=== PATIENT | female | born 1985 | race Caucasian/White ===

== ENCOUNTER → 2017-12-27 | Outpatient (CLI) | payer OTHER ==
[~2017-12-27] MED LIST: IOPAMIDOL (ISOVUE 370) 100 ML BTL IV ONE
== END ==
LOC: CIMAGING 14:20
PROVIDERS: ATTEND Physician Assistant Medical
DX: R07.89 Other chest pain (principal); R06.02 Shortness of breath; K51.918 Ulcerative colitis, unspecified with other complication
CPT/HCPCS: 71275-PO; Q9967

== ENCOUNTER 2018-04-10 17:04 | Emergency (ER) | payer OTHER ==
[2018-04-10] MEDS ORDERED: CEPHALEXIN 500 MG CAP PO ONE (18:53)
[2018-04-10] MEDS ORDERED: SULFAMETHOX/TMP 800/160 MG 1 TAB PO ONE (18:53)
--- NOTE | 2018-04-10 19:00 | EDPHY ---
H & P Time Seen by Provider: 04/10/18 18:09 HPI/ROS: HPI Right ankle pain. 32-year-old female by private vehicle with her boyfriend. This patient is from [place]. She recently moved here. She does not have a primary care physician currently. She reports that she has had a vague swelling to the medial aspect of her right ankle ongoing for 2-3 weeks. There is no history of trauma. She does have a history of ulcerative colitis but is not on immune suppressant medications. She is not a diabetic. She reports that since yesterday she has had significantly more pain to this area associated with redness. She also reports to very slight degree she has noticed a similar sensation involving the medial aspect of her left ankle. ROS: Constitutional: No fever, no chills. No weakness. Respiratory: No cough. No shortness of breath. Cardiac: No chest pain, no palpitations. Gastrointestinal: No abdominal pain, no vomiting, no diarrhea. Genitourinary: No hematuria. No dysuria or increased frequency with urination. Musculoskeletal: No back pain. No neck pain. As above. Skin: No rashes. As above. Neurological: No headache. No focal weakness or altered sensation. Past medical history: Ulcerative colitis. No other past medical history. Social history: Nonsmoker. Here with her boyfriend. No alcohol. Physical Exam: General Appearance: Alert, no distress. This patient is responding to questions appropriately and in full sentences. This patient appears well- hydrated and well-nourished. Eyes: Pupils equal and round no pallor or injection. No lid edema, erythema or injection. Right ankle exam: She has a diffuse erythema with the erythematous patch about the size of the palm of her hand. Estimated less than 1% total body surface area. It involves the inferior aspect of the medial malleolus and the area of the ankle just inferior to this. There is a slight palpable fluctuance just underneath the skin. No ecchymosis. No crepitus noted on palpation. The right foot and lower extremity are neurovascularly intact. The lateral aspect of the ankle joint on palpation of the lateral malleolus does not induce any pain. She does not have any pain with passive and active flexion and extension of the right ankle. Left ankle exam: I could not appreciate any significant swelling, tenderness or fluctuance to the medial aspect of the ankle, the lateral aspect of the ankle or the foot. Left foot is neurovascularly intact. Neurological: Motor sensory function is grossly intact. Cranial nerves are normal. Skin: Warm and dry, no rashes. Musculoskeletal: Neck is supple and nontender. Extremities are symmetrical. All joints range without pain or impingement. Psychiatric: No agitation. No depression. Database: EKG: Imaging: Procedures: Procedure: Abscess drainage. The patient's abscess was located on the medial aspect of the right ankle. I obtained verbal consent from the patient to drain the abscess who was informed about the possibility of bleeding and pain. The abscess was incised with 11. Blade scalp and a moderate amount of purulent drainage was expressed. I irrigated the wound and placed some packing. The patient tolerated the procedure well. The procedure was performed by myself. Emergency department course: Triage vital signs reviewed. She is mildly tachycardic in triage. She was not tachycardic on my exam. She is afebrile. After above procedure, the wound area was appropriately dressed. She will be started on Bactrim and Keflex in the emergency department. She currently does not have a primary care physician. I will have her follow up with the [facility] for re-evaluation and further management in 2 days. Purulent drainage sent for culture and Gram stain. She feels comfortable going home with her boyfriend. Follow-up and return to emergency department precautions were reviewed with her. All of her questions were answered. She was discharged in good condition with her boyfriend. Differential Diagnosis: The differential diagnosis on this patient includes but is not limited to abscess to right medial ankle, cellulitis to right medial ankle. Necrotizing fasciitis, septic arthritis unlikely. This represents a partial list of diagnoses considered. These considerations are based on history, physical exam , past history, reassessment and diagnostic testing. Smoking Status: Never smoked Constitutional: Initial Vital Signs Temperature (C) 36.7 C 04/10/18 17:10 Heart Rate 119 H 04/10/18 17:10 Respiratory Rate 18 04/10/18 17:10 Blood Pressure 117/76 04/10/18 17:10 O2 Sat (%) 98 04/10/18 17:10 O2 Delivery Mode Room Air Allergies/Adverse Reactions: No Known Allergies Allergy (Unverified 04/10/18 17:09) Home Medications: Medication Instructions Recorded Blisovi Fe 1-20 Tablet 04/10/18 Cephalexin [Keflex (*)] 500 mg PO Q6 7 Days cap 04/10/18 Lialda 04/10/18 Sulfamethox/Tmp 800/160 mg 1 tab PO BID@1000,2200 #14 tab 04/10/18 [Bactrim Ds] Tramadol HCl 50 mg PO Q4-6PRN PRN #10 tablet 04/10/18 Uceris 04/10/18 Departure - Departure Disposition: Home, Routine, Self-Care Clinical Impression: Right ankle abscess, Cellulitis of right ankle Condition: Good Instructions: Abscess (ED), Cellulitis (ED) Additional Instructions: Read and follow provided instructions. Follow-up with the [facility], infectious disease specialist, Dr. Noah Verde or 1 of his partners in 1-2 days for re-evaluation as discussed. They will have the results from your cultures as discussed. Take antibiotics as prescribed through entire course of treatment. Take pain medication as needed for pain. Keep wound area dry and clean. The bandage can be kept in place for 2 days until follow-up with [facility]. Return to the emergency department for worsening pain, swelling, fever, discoloration or other serious concerns. Referrals: [facility] (ED,. [Edm Groups for Call Sched] - As per Instructions Noah Verde MD [Medical Doctor] - As per Instructions Prescriptions: Cephalexin [Keflex (*)] 500 mg PO Q6 7 Days cap Sulfamethox/Tmp 800/160 mg [Bactrim Ds] 1 tab PO BID@1000,2200 #14 tab Tramadol HCl 50 mg PO Q4-6PRN PRN #10 tablet PRN Reason: Pain, Moderate
[2018-04-10 19:12] VITALS: BP 118/89
== END 2018-04-10 19:41 | disposition home or self-care (01) ==
LOC: MERGE 17:04
PROC: 0H9KXZZ Drainage of Right Lower Leg Skin, External Approach (ICD-10-PCS; principal; 2018-04-10)
DX: L02.415 Cutaneous abscess of right lower limb (principal); L03.115 Cellulitis of right lower limb
CPT/HCPCS: L4386

== ENCOUNTER 2018-04-16 11:05 | Inpatient (IN) | payer OTHER ==
[2018-04-16 12:01] LABS: PLATELET COUNT 976 10^3/uL (150-400)
[2018-04-16] MEDS ORDERED: HYDROmorphONE/DILAUDID 1 MG/ML INJ IVP PRN (12:20)
[2018-04-16] MEDS ORDERED: HYDROmorphONE/DILAUDID 2 MG/ML INJ ONE (12:35)
--- NOTE | 2018-04-16 13:06 | GCON ---
INFECTIOUS DISEASE CONSULTATION DATE OF CONSULTATION: 04/16/2018 REFERRING PHYSICIAN: Madan Cifuentes MD REASON FOR CONSULT: To assist in the management of this 32-year-old female with bilateral ankle swelling with overlying erythema of unclear etiology. HISTORY OF PRESENT ILLNESS: The patient is a very pleasant 32-year-old female whose previous medical history is notable for the followin.Ulcerative colitis: The patient states this was diagnosed in [place], [place] , where she is from approximately 3 years ago. It was diagnosed by colonoscopy and biopsy. She has been on mesalamine for the past 3 years. Her most recent flare was in October of this year, and she saw Dr. Josemanuel Dallas at [facility] for that. She was given a very slow prednisone taper with 60 mg over 2 months, but states that she did not tolerate the prednisone, and she was abruptly discontinued on 20 mg. She states that she went through "withdrawals, " but refused to go back on prednisone for a slower taper given her intolerance. Of note, she has never had any extraintestinal manifestations of inflammatory bowel disease. Presently, the patient states that her ulcerative colitis symptoms are quiescent and stable on mesalamine. Otherwise, she is a healthy young woman and received all of her childhood vaccinations. Regarding her present issues, the patient states that she has now been in [place] for the past, slightly over a year. She moved from [place], [place]. She reports that she is an avid runner, and approximately 3 weeks ago went on a long run of 15 miles. She states that this is not unusual for her. Shortly after this run, she noticed some discomfort and swelling in her right ankle. She iced it down, but it continued to get worse, and she noticed some overlying erythema and skin discoloration. She presented to [facility] Emergency Department on April 10. At that time, she states she also noted that her left ankle was starting to swell, but much less so compared to the right. She was found to have diffuse erythema with an erythematous patch about the size of the palm of the hand involving the inferior part of the medial malleolus. There was slight fluctuance noted by the ER physician. No crepitus or ecchymoses. The lateral aspect of the ankle was not discolored. The patient had the abscess in her ankle incised with a "moderate amount of purulent drainage expressed." The wound was irrigated and packing was placed. The patient tolerated the procedure well. She was discharged on Bactrim and Keflex and, given the fact that she did not have a primary care doctor, was referred to our clinic for further evaluation. Of note, at that time the patient was afebrile. She was given prescriptions for Keflex 500 mg q.6 hours for 7 days and Bactrim 1 tab p.o. b.i.d. for a week as well. Of note, the patient had not taken any antecedent antibiotics, and interestingly, the ankle Gram stain showed 2+ PMNs, 1+ monos, and no organisms, and the wound culture showed no growth. The patient states that she started taking these oral antibiotics and then, was seen in our clinic this past week, when she was evaluated by my colleagues, Puja Means and Dr. Wheeler. At that time as well, the patient was found to have some discoloration along her left ankle as well. She was started on daptomycin, which she has been receiving in our infusion center. I was called yesterday afternoon by the nursing staff of the Infusion Center, concerned about the appearance of the patient's left ankle with overlying erythema in spite of daptomycin. The patient had no fever and was otherwise well. The patient did not want to go back down to the emergency room, and at that point, I was not in the hospital. Given her clinical stability, I recommended that they move her infusion to the morning; so, I would be able to evaluate her. I then went to go see the patient in the Infusion Center this morning, around 10: 30 when she presented for her daptomycin. The patient states that she is having significant discomfort in both ankles, and now the left ankle is significantly swollen with overlying erythema. The right ankle is unchanged, and the patient feels that antibiotics have made no difference in its appearance. She states that she has had no fevers, shaking chills, nausea, vomiting, diarrhea, or other. She denies any recent gynecological manipulations , dental extraction, or other surgeries at all. She did travel back to [place], [place] over Labor Day weekend, but denies any tick bites, insect bites, or other unusual exposures. She has a very supportive boyfriend who is at her side. They have been together for the past year and both of them report that they are monogamous. She has never had a sexually transmitted infection. She has never been tested for HIV. She states that she has never had any extraintestinal manifestations of ulcerative colitis specifically, no history of joint pains at all. No other unusual exposures. REVIEW OF SYSTEMS: Notable for severe pain in both ankles, but is otherwise negative. Ten systems are reviewed, and all are negative. PREVIOUS MEDICAL HISTORY: Outlined above. ALLERGIES: No known drug allergies. MEDICATIONS: Presently include: Mesalamine and Tylenol p.r.n. Oral contraceptives. SOCIAL HISTORY: The patient was born in [place] and raised in [place], [place]. She moved to [place] slightly over a year ago, and [facility] [place] [facility] with a healthy roommate. She is an avid runner. She has no pets. She has been with the same partner for the past year. She has never been tested for HIV as outlined above, and has never had a sexually transmitted infection to her knowledge. Last Pap smear was in October. She has never had an abnormal Pap smear. She has never been . Rare alcohol, no tobacco, no illicit substances. She works as a airframe technician. No recent tick bites, insect bites, or other. FAMILY HISTORY: The patient has 2 healthy siblings. Mother and father are also healthy. No autoimmune history. PHYSICAL EXAMINATION: VITAL SIGNS: T-current is 35.9, heart rate 106, blood pressure 112/71, 100% on room air. GENERAL: Thin female, nontoxic, no apparent distress. HEENT: Atraumatic, normocephalic. Pupils equal, round, reactive to light. Extraocular movements are intact. Her left conjunctiva is notable for some mild conjunctival erythema on the lateral aspect of her left eye. Does not appear to be a hemorrhage. Otherwise, the orbits are normal. Pupils are equal, round, and reactive to light. No scleral icterus. No known sinus process, tenderness, or discharge from the nares. Mucous membranes are moist. No oral lesions noted, whatsoever. CARDIOVASCULAR: Tachycardic S1, S2. No rubs, gallops, or murmurs. LUNGS: No increased respiratory effort. Clear to auscultation bilaterally. No rales, rhonchi, or wheeze. ABDOMEN: Soft. No organomegaly. No tenderness to palpation. SKIN: Warm and dry, no embolic stigmata. Please see below regarding her ankle exam. EXTREMITIES: There is no discomfort with squeeze of the small joints of her fingers, toes, hands, or feet. The elbows and other large joints look fine. The right ankle is quite swollen and warm. There is overlying dusky erythema circumferentially over the lateral and medial aspects of both malleoli. There is a large hemorrhagic bulla that is now flaccid and burst during my exam with a large amount of bloody drainage. There is no hip esthesia or lack of sensation. The patient has extreme pain when flexing or extending her foot. The toes themselves look fine. The left ankle is also swollen, less so compared to the right. She does have an overlying patch of erythema that is blanching. There are no bullae or vesicles. The medial malleolar patch of erythema has underlying fluctuance to it and is quite tender. NEUROLOGIC: She is alert and oriented x3. No focal deficits. DATA REVIEWED: Laboratory: Microbiologic data as outlined above. White blood cell count on the 13 of April was 11.8, hematocrit 26, with an MCV of 74, platelet count of 806. BUN and creatinine on the , was 8/0.7. Liver function tests were within normal limits, but albumin was notable at 2.8, creatine kinase was 28. Radiographic: None. IMPRESSION: 32-year-old female with a history of ulcerative colitis, presently quiescent with no history of extraintestinal manifestations, now with bilateral ankle swelling and overlying erythema/fluctuance unaffected by Daptomycin. Previous aspiration of the right ankle off antibiotics was sterile with a negative Gram stain. The patient now has progression of her symptoms, with worsening swelling and new overlying erythema and fluctuance of the left ankle. No other joints are involved. She perhaps has a mild conjunctivitis in the left eye that is subtle. No urinary symptoms. The patient's exposure history is underwhelming; she does not use illicit substances and no recent arthropod bites. The differential diagnosis for progressive bilateral arthritis with overlying skin changes includes both infectious and non-infectious etiologies. This process is clearly unaffected by daptomycin, and typical pathogens to be expected such as Staphylococcus and Streptococcus did not grow in the patient's original culture. She is a young, sexually active woman, so disseminated gonococcal infection should be ruled out, although this seems less likely given the patient's history. Other infectious etiologies that would be difficult to culture include anaerobes (unlikely), Borrelia Burgdorferi,(unlikely as well, and this typically presents as a monoarticular process affecting the knee.) Doubt Whipple's disease, mycoplasma (can be seen in females or patients with hypogammaglobulinemia), fungal etiologies or atypical mycobacteria. Clinical presentation is also inconsistent with a viral etiology , such as rubella, parvovirus, or the hepatitis viruses. Regarding noninfectious etiologies, considerations include crystalline arthropathies such as gout or pseudogout or mesalamine induced gout (less than 1 %), arthritis related to ulcerative colitis, reactive arthritis, or other autoimmune phenomenon. PLAN: 1. Discontinue Daptomycin. 2. Start Ceftriaxone 2 g IV daily after the left ankle has been aspirated to cover disseminated gonococcal infection until this has been ruled out. 3. Obtain MRIs of both ankles. 4. I have asked Dr. Damian Moreno of Orthopedics to see the patient and aspirate her left ankle and send for Gram stain, culture, AFB stain and culture , fungal stain and culture, crystals to look for uric acid or calcium para phosphate, cell count, and differential, and gonococcal culture. 5. Will also obtain blood cultures given that the ankle process is bilateral ( intimating blood stream infection), HIV antibody test, gonorrhea and chlamydia screening of the throat and urine, ILENE, ESR, CRP, rheumatoid factor, HLA B27. Will also ask the micro lab to hold the sample in case of the need for PCR testing for other unusual organisms, such as mycoplasma. 6. For her anemia, I have sent iron studies and reticulocyte count; suspect this is the cause of her tachycardia. I do not feel that she needs an echocardiogram at this point in time, as concern for endocarditis is low. 7. Given lack of evidence of streptococcal or staphylococcal etiology, do not feel the patient requires an emergent washout at this point in time of her joints. If this were disseminated gonococcus, washouts are typically not necessary. 8. Consider Rheumatology consult moving forward if necessary. 9. As she is a sexually active young female with no prior testing, will also screen for syphilis in addition to gonorrhea and chlamydia screening of the throat and urine, hepatitis-C antibody, and HIV as outlined above. Thank you very much for consulting Infectious Diseases. We will continue to follow this patient you. /[id number]/MODL MTDD
[2018-04-16] MEDS ORDERED: GADOBUTROL 10 ML VIAL IVP ONE (13:31)
[2018-04-16] MEDS ORDERED: ACETAMINOPHEN 325 MG TAB PO PRN (13:37)
[2018-04-16] MEDS ORDERED: ONDANSETRON 4 MG/2 ML VIAL IVP PRN (13:37)
[2018-04-16] MEDS ORDERED: ONDANSETRON DISINTEGRATING 4 MG TAB PO PRN (13:37)
[2018-04-16] MEDS ORDERED: NS W/ 20 KCl/L 1,000 ML IV SCH (13:45)
--- NOTE | 2018-04-16 13:54 | PDGENHP ---
History and Physical - Chief Complaint bilateral ankle swelling - History of Present Illness This is a 32 yo female, with hx of UC, who went on a run a few weeks ago and developed right ankle pain and swelling. This progressed and ultimately she presented to our ED for management. The swelling was aspirated and cultures were negative. She was started on Bactrim and Keflex and she f/u with Dr. Wheeler with ID. On follow up her abx was changed to Daptomycin. Over the past few days she has noted to have swelling of her left ankle with similar appearance to that of the right. She was at the infusion center yesterday and was asked to return today. Upon her return to day, ID evaluated and it was felt that she needed admission for further w/u and mgmt. She denies fever. She has a cough which started about 2 days ago but otherwise has been feeling fine. Denies rhinorrhea or cold like symptoms, no diarrhea, no rash. She is sexually active with her BF. she does not have any recent travel. Ortho has been consulted. PMHx: UC per above socHx: non smoker, social ETOH, no illicits FmHx: no hx of AI disorder History Information - Allergies/Home Medication List Allergies/Adverse Reactions: No Known Allergies Allergy (Verified 04/16/18 11:36) Home Medications: Mesalamine [Lialda] 4.8 gm PO DAILY 04/10/18 [Last Taken 04/16/18 11:00] Norethindrone-E.estradiol-Iron [Blisovi Fe 1-20 Tablet] 1 each PO DAILY [Last Taken 04/15/18] I have personally reviewed and updated: medical history, social history - Social History Smoking Status: Never smoked Review of Systems Review of Systems: ROS: 10pt was reviewed & negative except for what was stated in HPI & below Physical Exam Physical Exam: Temp Pulse Resp BP Pulse Ox 36.7 C 90 16 117/77 99 04/16/18 12:00 04/16/18 12:00 04/16/18 12:00 04/16/18 12:00 04/16/18 12:00 Constitutional: no apparent distress Eyes: PERRL, EOMI Ears, Nose, Mouth, Throat: moist mucous membranes, hearing normal, ears appear normal Cardiovascular: regular rate and rhythym, No edema Respiratory: no respiratory distress, no rales or rhonchi, clear to auscultation Gastrointestinal: normoactive bowel sounds Skin: warm Musculoskeletal: other (bilateral ankles with swelling and erythema mostly on medial aspect. There is induraton over the medial malleolus. ) Neurologic: AAOx3 Psychiatric: interacting appropriately, not anxious, not encephalopathic Lymph, Heme, Immunologic: No petechiae Lab Data & Imaging Review 04/16/18 11:40 04/16/18 11:40 WBC 13.43 10^3/uL (3.80-9.50) H 04/16/18 11:40 RBC 3.96 10^6/uL (4.18-5.33) L 04/16/18 11:40 Hgb 9.0 g/dL (12.6-16.3) L 04/16/18 11:40 Hct 29.0 % (38.0-47.0) L 04/16/18 11:40 MCV 73.2 fL (81.5-99.8) L 04/16/18 11:40 MCH 22.7 pg (27.9-34.1) L 04/16/18 11:40 MCHC 31.0 g/dL (32.4-36.7) L 04/16/18 11:40 RDW 15.8 % (11.5-15.2) H 04/16/18 11:40 Plt Count 976 10^3/uL (150-400) H 04/16/18 11:40 MPV 8.3 fL (8.7-11.7) L 04/16/18 11:40 Neut % (Auto) 71.6 % (39.3-74.2) 04/16/18 11:40 Lymph % (Auto) 16.0 % (15.0-45.0) 04/16/18 11:40 [place] % (Auto) 8.9 % (4.5-13.0) 04/16/18 11:40 Eos % (Auto) 2.0 % (0.6-7.6) 04/16/18 11:40 Baso % (Auto) 0.2 % (0.3-1.7) L 04/16/18 11:40 Nucleat RBC Rel Count 0.0 % (0.0-0.2) 04/16/18 11:40 Absolute Neuts (auto) 9.62 10^3/uL (1.70-6.50) H 04/16/18 11:40 Absolute Lymphs (auto) 2.15 10^3/uL (1.00-3.00) 04/16/18 11:40 Absolute Monos (auto) 1.19 10^3/uL (0.30-0.80) H 04/16/18 11:40 Absolute Eos (auto) 0.27 10^3/uL (0.03-0.40) 04/16/18 11:40 Absolute Basos (auto) 0.03 10^3/uL (0.02-0.10) 04/16/18 11:40 Absolute Nucleated RBC 0.00 10^3/uL (0-0.01) 04/16/18 11:40 Immature Gran % 1.3 % (0.0-1.1) H 04/16/18 11:40 Immature Gran # 0.17 10^3/uL (0.00-0.10) H 04/16/18 11:40 ESR 101 MM/HR (0-20) H 04/16/18 11:40 Absolute Retic 0.030 10^6/uL (0.050-0.117) L 04/16/18 11:40 Percent Retic 0.71 % (0.98-2.67) L 04/16/18 11:40 Sodium 137 mEq/L (135-145) 04/16/18 11:40 Potassium 4.7 mEq/L (3.3-5.0) 04/16/18 11:40 Chloride 104 mEq/L (97-110) 04/16/18 11:40 Carbon Dioxide 22 mEq/l (22-31) 04/16/18 11:40 Anion Gap 11 mEq/L (8-16) 04/16/18 11:40 BUN 9 mg/dL (7-23) 04/16/18 11:40 Creatinine 0.6 mg/dL (0.6-1.0) 04/16/18 11:40 Estimated GFR > 60 04/16/18 11:40 Glucose 84 mg/dL (70-100) 04/16/18 11:40 Calcium 9.0 mg/dL (8.5-10.4) 04/16/18 11:40 Iron 16.0 mcg/dL (37.0-170.0) L 04/16/18 11:40 TIBC 293 ug/dL (260-490) 04/16/18 11:40 Iron Saturation 5 % (20-55) L 04/16/18 11:40 Ferritin 49.6 ng/mL (6.2-264.0) 04/16/18 11:40 Total Bilirubin 0.3 mg/dL (0.1-1.4) 04/16/18 11:40 AST 36 IU/L (14-46) 04/16/18 11:40 ALT 41 IU/L (9-52) 04/16/18 11:40 Alkaline Phosphatase 115 IU/L (38-126) 04/16/18 11:40 C-Reactive Protein 152.5 mg/L (<10.0) H 04/16/18 11:40 Total Protein 6.7 g/dL (6.3-8.2) 04/16/18 11:40 Albumin 3.1 g/dL (3.5-5.0) L 04/16/18 11:40 Synovial Source SYNOVIAL 04/16/18 12:35 Synovial Color PINK (CLS/PALE YL) H 04/16/18 12:35 Synovial Appearance SL. HAZY (CLEAR) H 04/16/18 12:35 Synovial WBC 114 /mm3 (0-150) 04/16/18 12:35 Synovial RBC 62410 /mm3 (0-0) H 04/16/18 12:35 Synovial Neutrophils 42 % (0-25) H 04/16/18 12:35 Synovial Lymphocytes 41 % 04/16/18 12:35 Synov Monos/Macrophage 17 % 04/16/18 12:35 Rheum Factor Semi-Quant < 8.6 IU/L (<12.0) 04/16/18 11:40 Assessment & Plan Assessment: #Bilateral ankle swelling concerning for infection vs other -Change abx to Rocephin per ID -ID is following -Ortho has aspirated the fluid collections -await cultures -await Rheum and infectious w/u -check drug screen -consider TTE if w/u remains negative #cough: -I will obtain a CXR -not hypoxemic #Leukocytosis #Anemia with Microcytosis -iron panel #Tachycardia, unclear etiology -will provide a liter of IVF -may be due to anemia vs possible infection #ulcerative colitis inpatient admission
--- NOTE | 2018-04-16 14:15 | ASMTCMCOM ---
CM Note CM Note Notes: 32yr old female admitted for bilateral ankle swelling. Had R ankle swelling went to ER[facility] and on ABX. now bilateral swelling. Patient on IV ABX, ankle fluid aspirated and sent for cultures. Patient has a supportive boyfriend.CM to follow for possible discharge needs. Date Signed: 04/16/2018 02:15 PM Electronically Signed By:Staci Beach LCSW
[2018-04-16] MEDS: NORETHINDRONE E ESTRADIOL IRON PO SCH (16:09)
--- NOTE | 2018-04-16 17:09 | PDMN ---
Medical Necessity Medical necessity: Pt meets inpt criteria per MD order and Systemic or Infectious Condition GRG. y/o admitted w/bilateral ankle swelling/pain concerning for infection, leukocytosis (WBC's 13.43), C-Reactive protein elevated at 152.5, H&H 9.0, 29.0, plt elevated at 976, tachycardic, cough present. Pt seen on outpt basis for ankle swelling,on antibiotics yet symptoms progressing. Ortho consult, fluid aspirated, cultures pending, ID consult and following, IVF, IV ABX's, cxr pending, anticipate>2MN for further workup and treatment.
--- NOTE | 2018-04-16 18:28 | GCON ---
REFERRING PHYSICIAN: Molly Donald MD I was asked to see the patient by Molly Donald, the infectious disease specialist at [facility]. HISTORY OF PRESENT ILLNESS: For a more detailed HPI, please see the patient's history and physical w ith her infectious disease doctor. In short, the patient has had bilateral ankle pain for the last s everal weeks. An aspiration was done of the right ankle which did not demonstrate any sort of infect ious process, and labs were grossly negative for infection. Labs were sent at that time. However, t here were inadequate with regard to crystal analysis, cell count, etc. I have been asked by Dr. Kaz freeman to send additional studies to assist with her diagnosis. The patient notes no other issues aside f rom her bilateral ankle pain as mentioned. PHYSICAL EXAM: Both ankles are visualized. The right ankle is somewhat more swollen and tender. Sh e does have skin changes over the medial aspect. There is some induration bilaterally in more or les s symmetric pattern centered over the medial malleolus with approximately 15 cm in diameter. Difficu lt to tell if this is erythema or underlying soft tissue changes. Neurovascularly, she is intact. S he has no sensory, motor, or vascular deficits. An MRI is reviewed. I have personally seen and evaluated this exam. Grossly, there is nothing too r emarkable about this examination. I will at this time defer to radiologist's report regarding the fi nal diagnosis. IMPRESSION: Bilateral ankle swelling with medial ankle lesions. The patient was consented for left ankle aspiration. Under sterile conditions, the left ankle was as pirated. The first cubic centimeters of ankle fluid that was drawn back was perfectly clear. The la st bit of fluid had a little bit of blood tinge in it due to the traumatic nature of the aspiration. Approximately 1.5 cc total joint fluid was then sent for all of the aforementioned studies requested by Dr. Donald. ASSESSMENT AND PLAN: It really does not look like this patient has any sort of infectious etiology a nd I strongly doubt she would need any sort of irrigation, debridement, or further operative manageme nt. Therefore, I will sign off on this patient for now and I have asked that Dr. Donald contact me in the future if any further surgical consultation or management is requested. Thank you again for this consultation. Please do not hesitate to contact my cell phone if there are any further questions or concerns, . /[id number]/MODL
[2018-04-16] MEDS: HYDROCODONE/APAP 5/325 TAB PO PRN (19:38)
[2018-04-17 04:13] LABS: HIV TYPE 1 AND 2 NEGATIVE (NEGATIVE)
[2018-04-17 04:13] LABS: HEPATITIS B CORE AB TOTAL NEGATIVE (NEGATIVE); HEPATITIS B SURFACE ANTIGEN NEGATIVE (NEGATIVE); HEPATITIS C ANTIBODY TOTAL NEGATIVE (NEGATIVE)
[2018-04-17] MEDS: HYDROCODONE/APAP 5/325 TAB PO PRN ×4 (04:23→20:37)
[2018-04-17 05:22] LABS: PLATELET COUNT 785 10^3/uL (150-400)
[2018-04-17] MEDS: MESALAMINE 4.8 GM PO SCH (08:28)
[2018-04-17] MEDS: NORETHINDRONE E ESTRADIOL IRON PO SCH (08:30)
--- NOTE | 2018-04-17 11:40 | HOSPPROG ---
Hospitalist Progress Note Assessment/Plan: #Bilateral ankle swelling concerning for infection vs other -Change abx to Rocephin per ID -ID is following -Ortho has aspirated the fluid collections -await cultures -await Rheum and infectious w/u -consider TTE if w/u remains negative #Leukocytosis #Anemia with Microcytosis -iron panel indicated Fe Deficiency -Will start on PO iron replacement upon discharge with instructions to followup with OP GI #Tachycardia, unclear etiology -will provide a liter of IVF -may be due to anemia vs possible infection #ulcerative colitis Dispo: Pending clinical course Subjective: Patient reports continuing b/l ankle pain and swelling Objective: Vital Signs Temp Pulse Resp BP Pulse Ox 36.9 C 86 16 114/78 94 04/17/18 07:31 04/17/18 07:31 04/17/18 07:31 04/17/18 07:31 04/17/18 07:31 Microbiology 04/16/18 12:48 Gram Stain - Final Synovial Fluid - Aspirate Laboratory Results 04/17/18 04:07 04/17/18 04:07 04/16/18 04/17/18 04/18/18 05:59 05:59 05:59 Intake Total 1000 Balance 1000 - Physical Exam Constitutional: no apparent distress Eyes: PERRL Ears, Nose, Mouth, Throat: moist mucous membranes Cardiovascular: regular rate and rhythym Respiratory: no respiratory distress Gastrointestinal: soft, non-tender abdomen Genitourinary: no bladder fullness Skin: warm, erythema Musculoskeletal: joint effusion, joint tenderness, pain with ROM, abnormal gait Neurologic: AAOx3 Psychiatric: interacting appropriately ICD10 Worksheet Patient Problems: Problems Problem Status Onset Ankle swelling Acute Ulcerative colitis Acute - ICD10 Problem Qualifiers (1) Ankle swelling (2) Ulcerative colitis
[2018-04-17 12:04] LABS: GC AMPLIFICATION GENPROBE NEGATIVE (NEGATIVE)
--- NOTE | 2018-04-17 14:08 | PCMIDPN ---
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 Reviewed with Rheumatology who also note that panniculitis can occur in the setting of ulcerative colitis. They will see the patient in consultation for further assistance and to help determine if additional immunosuppressive therapy warranted. Seropurulent material was expressed today and sent for AFB and fungal culture as well. GC testing is negative, therefore will discontinue ceftriaxone and observe off antibiotic therapy. Patient also has concomitant thrombocytosis and anemia consistent with significant inflammatory response. If rheumatology feel skin biopsy would be of further utility, will arrange for this to take place. Time spent, greater than 35 min, of which greater than half was spent in education/counseling/coordination of care related to bilateral ankle arthropathy with soft tissue inflammatory change including coordination of care with hospitalist service and Rheumatology. 04/17/18 14:03 04/17/18 16:58 04/17/18 17:10 Subjective: Patient with bilateral ankle pain. Right greater than left. Unable to bear weight on right ankle. No sense of fever or chills. Patient did not have any clinical improvement with daptomycin and has not noted any improvement with ceftriaxone. No preceding pedicures or hot tub exposure. No animal exposure. Patient previously seen by me in office at time of her initial evaluation by Puja Means NP on 04/13/18. Dr. Donald's consultation from yesterday also reviewed. Imaging and diagnostic tests including synovial fluid findings and culture findings also reviewed. Objective: Vital Signs Temp Pulse Resp BP Pulse Ox 36.9 C 86 16 114/78 94 04/17/18 07:31 04/17/18 07:31 04/17/18 07:31 04/17/18 07:31 04/17/18 07:31 Microbiology 04/17/18 09:50 Gram Stain - Final Ankle - Aspirate 04/16/18 12:48 Gram Stain - Final Synovial Fluid - Aspirate Laboratory Results 04/17/18 04:07 04/17/18 04:07 04/16/18 04/17/18 04/18/18 05:59 05:59 05:59 Intake Total 1000 Balance 1000 ESR 101 MM/HR (0-20) H 04/16/18 11:40 C-Reactive Protein 152.5 mg/L (<10.0) H 04/16/18 11:40 Ceftriaxone # 2 Blood cultures x2 04/16/2018 pending Multiple rheumatologic serologies pending Laboratory Tests 04/16/18 04/16/18 04/16/18 11:10 11:10 11:25 Synovial WBC Synovial RBC Synovial Neutrophils Synovial Lymphocytes Synov Monos/Macrophage Synovial Crystals Rheum Factor Semi-Quant Syphilis IgG/IgM Ab NONREACTIVE C.trachomatis RNA (TMA) Hep Bs Antigen NEGATIVE Hepatitis C Antibody NEGATIVE Monoscreen NEGATIVE N.gonorrhoeae RNA (TMA) NEGATIVE 04/16/18 04/16/18 04/16/18 11:40 12:35 14:26 Synovial WBC 114 Synovial RBC 23089 H Synovial Neutrophils 42 H Synovial Lymphocytes 41 Synov Monos/Macrophage 17 Synovial Crystals NONE SEEN Rheum Factor Semi-Quant < 8.6 Syphilis IgG/IgM Ab C.trachomatis RNA (TMA) NEGATIVE Hep Bs Antigen Hepatitis C Antibody Monoscreen N.gonorrhoeae RNA (TMA) - Physical Exam General Appearance: alert, no apparent distress EENT: pharynx normal, No scleral icterus, No conjunctival petechiae Extremities: inflammation (Right medial malleolar region with residual dusky erythema and seropurulent drainage; remains significantly tender to palpation with pain with range of motion of ankle; left medial malleolar region with new dusky erythema and "ropy"texture with tenderness present and pain with range of motion of ankle; no drainage present) ICD10 Worksheet Patient Problems: Problems Problem Status Onset Ankle swelling Acute Ulcerative colitis Acute
--- NOTE | 2018-04-17 15:31 | WOCRNPDOC ---
WOCRN Advanced Assessment Note - Skin Integrity Problem, Advanced Assess Right Ankle Dressing Type: Open to Air Exudate Amount: Moderate Exudate Color: Reddish/Yellow Exudate Characteristic(s): Serosanguinous Integumentary Issue Intervention: Visualized Under Dressing (visualized wound) Jerri Wound Tissue: Erythema, Swollen, Painful/Tender Jerri Wound Swelling: Moderate Wound Bed Color: [place], Red, White Wound Bed Constitution: Draining Serous Blister Site Measurement - Head-to-Toe Length X Width X Depth (cm): 7x5x bulla Skin Integrity Problem Comment: Wound bed cleaned gently with normal saline. Patient states wound is very painful. Patient states she doesn't know where the wounds came from. Dr. Wheeler in ID described wound as possibly being PG based on patient presentation. Conferred with Jennifer VARELA who agrees with Dr Wheeler. Wound care will round again later this week.
[2018-04-18] MEDS: HYDROCODONE/APAP 5/325 TAB PO PRN ×2 (02:15→08:06)
[2018-04-18] MEDS: methylPREDNISolone 4 MG TAB PO SCH (08:01)
[2018-04-18] MEDS: MESALAMINE 4.8 GM PO SCH (08:05)
[2018-04-18] MEDS: NORETHINDRONE E ESTRADIOL IRON PO SCH (08:06)
--- NOTE | 2018-04-18 10:39 | PDCONSULT ---
Archaeologist Note: Requesting physician-- Dr. Uvaldo Wheeler Primary GI-- Dr. Josemanuel Dallas Reason for consult-- ankle pain Date of service 04/17/18 HPI-- Ms. Buenrostro is a 32 yo F with UC who presents with B ankle pain. She has UC that was biopsy proven in 2014. She was treated with lialda, mesalamine and uceris and was in remission after this. She did great until October 2017 when she had a flare of UC symptoms. She was started on prednisone 60mg, but had significant side effects including CP, SOB, insomnia and anorexia. She continued her taper over 10 wks though. Since then she has had continued diarrhea and bloody stools, but it's better than it was in October. 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 She somehow made it to ID for ? cellulitis. She was started on oral abx and then a few days of IV abx. After she didn't have improvements she was admitted 04/16/18. About 1 wk prior to admission she had pain and swelling at the L medial ankle. ROS-- 14point ROS negative except for pertinents as below No fever, chills, wt loss, iritis, joint pain, stiffness, back stiffness, enthesitis, dactylitis, rash. PMH-- ulcerative colitis PSH-- none SH-- nonsmoker, social ETOH FH-- no autoimmune disease Allergies-- NKDA PE-- vitals as noted in nursing notes GEN-- aao x 3, no acute distress HEENT-- no submandibular/parotid swelling, no masses Chest-- clear, no wheeze/rhonchi CV-- RRR, no murmur Abd-- nondistend Ext-- soft tissue swelling B ankles and with pitting on L foot Skin-- 6cm erythematous and swollen area at L medial malleolus, no ulceration but nodularities that look like varicosities would appear; RLE with erythematous nodular lesion, dressed MSK-- no synovitis BUE, knees; B ankles difficult to assess given significant STS Labs-- 04/16/18-- WBC 13.4, Hb 9.0, Plt 976, neuts 9.6k, monos 1.2k; R ankle SF WBC 114 , RBC 35,011, neuts 42%, no crystals, gram and AFB stains negative; NEG-- UDS, Chlm/GC RNA, HBsAg, HBcAb, HCV ab, mono, HIV 1/2 04/17/18-- CRP 15.2mg/dl; WBC 11.3, Hb 7.6, MCV 74, Plt 785, neuts 6.95, lymphs 2.7k; Cr 0.6, GFR >60, Ca 8.2, AP 115, AST 36, ALT 41; iron 52, sat 5%, ferritin 50, TIBC 293 pending studies-- ILENE, dsDNA, CCP, ANCA, PR3, MPO, HLA-B27, HBsAb, SF culture, blooc cx 04/16/18 MRI R ankle-- 3cm cutaneous fluid collection med. R ankle, extensive cellulitis w/o abscess or osteomyelitis; no effusion, synovitis or bone marrow edema 04/16/18 MRI L ankle-- extensive subcutaneous cellulitis med-post ankle w/o abscess or osteomyelitis; no effusion or synovitis noted A/P-- 32yo F with hx of UC, anemia and now subcutaneous nodular lesions B medial ankles. 1. Ankle pain and skin lesions-- she has no evidence for synovitis to account for her ankle swelling, which is more soft tissue than articular. She has normal synovial fluid WBC and no synovitis on MRI so that's good news. I suspect this is a dermatologic manifestation of UC. Interestingly, she has a nodular appearance, which I haven't seen before with derm manifestations of IBD. I suspect this is a panniculitis as the lesion doesn't look like classic erythema nodosum, pyoderma gangrenosum or Sweet's syndrome. I don't see evidence for vasculitis. 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 For now she's agreeable to at least trying medrol as an alternative to prednisone (she had terrible side effects). We reviewed the side effects at length and she's ok with trying 40mg qam x 3 days then 32mg qam with plans to taper after this. 2. Ulcerative colitis-- she had a flare in October and continues to have diarrhea. She has an iron deficiency anemia so I suspect she has active colitis. I called Dr. Ky Barrios, salon shampoo assistant for her GI DrMiri Dallas, who will see her tomorrow and likely plan on a colonoscopy. If evidence for active disease she'll probably need a TNF-inhibitor. 3. Anemia-- combo of chronic dz and iron deficiency 4. Thrombocytosis-- likely from systemic inflammatory process, from IBD and/or skin. 5. Will follow peripherally. Call if ?s [phone].
--- NOTE | 2018-04-18 11:37 | HOSPPROG ---
Hospitalist Progress Note Assessment/Plan: #Bilateral ankle swelling concerning for infection vs other -ID consulted who initially changed abx to Rocephin then were discontinued yesterday -Ortho has aspirated the fluid collections, awaiting cultures -Rheumatology consulted yesterday who believe this is 2/2 to UC, started patient on Methylprednisilone 40 mg qd -Autoimmune lab work pending #Anemia with Microcytosis -iron panel indicated Fe Deficiency -Will start on PO iron replacement upon discharge with instructions to followup with OP GI - Continue to monitor CBC - GI to be consulted for evaluation of UC activity #ulcerative colitis - Has been controlled on Mesalamine in the past - Tx with steroids as above, GI to be consulted for evaluation of ds activity Dispo: Pending clinical course Subjective: Patient reports improved swelling and pain in b/l LE Objective: Vital Signs Temp Pulse Resp BP Pulse Ox 36.6 C 91 16 111/64 95 04/18/18 07:55 04/18/18 07:55 04/18/18 07:55 04/18/18 07:55 04/18/18 07:55 Microbiology 04/17/18 09:50 Mycobacterial Smear (SIRIA) - Final Ankle - Other 04/17/18 09:50 Gram Stain - Final Ankle - Aspirate Laboratory Results 04/18/18 04:12 04/18/18 04:12 04/17/18 04/18/18 04/19/18 05:59 05:59 05:59 Intake Total 1000 500 Balance 1000 500 - Physical Exam Constitutional: no apparent distress Eyes: PERRL Ears, Nose, Mouth, Throat: moist mucous membranes Cardiovascular: regular rate and rhythym Respiratory: no respiratory distress Gastrointestinal: normoactive bowel sounds Skin: warm, erythema Musculoskeletal: joint effusion, pain with ROM Neurologic: AAOx3 Psychiatric: interacting appropriately ICD10 Worksheet Patient Problems: Problems Problem Status Onset Ankle swelling Acute Ulcerative colitis Acute - ICD10 Problem Qualifiers (1) Ankle swelling (2) Ulcerative colitis
--- NOTE | 2018-04-18 12:30 | GCON ---
CHIEF COMPLAINT: Ulcerative colitis, admitted with questionable cellulitis. Patient admitted with lower extremity erythema, treated initially for cellulitis. HISTORY OF PRESENT ILLNESS: This 32-year-old woman has a history of ulcerative colitis followed by Dr. Pitts as an outpatient. I have been asked to see this paitent in consultaion by Dr. Godinez due to her history of UC. She was admitted with right ankle swelling. Symptoms of erytema and swelling became worse and she was seen in the emergency department. She was seen by Infectious Disease and Rheumatology. She was diagnosed with UC in 2014. Previous treatment and work up was [place] of [place]. She was recently seen by Dr. Dallas in October for symptoms of bloody diarrhea consistent with colitis and flare. She had not been on medication or specific treatment of UC at that time. She was placed on Lialda and prednisone at that time. She did not tolerate prednisone and was started on Lialda 4 tabs a day and Uceris. She gradually had improvement of symptoms. She has finished her course of Uceris. She reports to be doing fairly well as far as her UC symptoms. She was having some increased crampy discomfort and diarrhea with onset of lower extremity erythema and edema. This symptoms have improved since her admission. I have been asked to see patient during this hospitalization due to her history of ulcerative colitis. The patient was started on Medrol yesterday by Dr. Godinez for panniculitis of the LE. She had not responded to IV antibiotics. PAST MEDICAL HISTORY: Remarkable for ulcerative colitis. PAST SURGICAL HISTORY: Negative. MEDICATIONS: Currently include acetaminophen, Ferriday, Medrol 40 mg daily, Zofran. ALLERGIES: She has no known drug allergies. FAMILY HISTORY: Noncontributory as pertains to chief complaint. SOCIAL HISTORY: Nonsmoker, nondrinker. REVIEW OF SYSTEMS: Negative 10 systems. PHYSICAL EXAM: VITAL SIGNS: 111/64, heart rate of 91, respiratory rate 16, 95 % sat, 36.6. GENERAL: Very pleasant woman, no acute distress. HEENT: Normocephalic, atraumatic. EOMI. NECK: Supple. No cervical adenopathy. LUNGS: Clear. CARDIAC: Normal S1, S2. No cervical adenopathy. Mucous membranes moist. No thyromegaly. Without murmur. ABDOMEN: Soft, normal, benign, nontender. No hepatosplenomegaly. EXTREMITIES: Remarkable for erythema of the right and left lower extremity. No edema. No clubbing. SKIN: Warm, dry, intact otherwise. PSYCH: Normal affect. NEURO: Nonfocal. LABORATORY DATA: Serum sodium 137, potassium 4.9, CO2 of 28, creatinine 0.6. White count of 8.87. Hemoglobin 7.2, hematocrit 23.2, MCV of 74.1. IMPRESSION: 32-year-old woman with history of ulcerative colitis with microcytic anemia. Suspect chronic disease. Patient on Lialda. She may benefit from biologics. However, we will recommend continuing on Lialda at present until over current illness. The patient will follow up and proceed with outpatient colonoscopy and consideration for biologic therapy. Will follow with you while she is in the hospital. /[id number]/MODL MTDD
--- NOTE | 2018-04-18 17:51 | PCMIDPN ---
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 Findings most compatible with immunologic response related to underlying UC. Plans for outpatient colonoscopy to assess for active colitis. Significant clinical improvement since initiating Solu-Medrol. Blood and wound cultures remain negative to date. AFB smear sent yesterday was also negative. Plan continued observation off antibiotics and with ongoing steroid use. Denuded bulla on right medial malleolar region may require ongoing wound care as this likely will leave large area of exposed tissue. Will arrange for [facility] 04/18/18 17:47 Subjective: Patient with significant decrease in left ankle pain and some decrease in right ankle pain but remains unable to bear weight on right ankle. Skin changes on left ankle less prominent. Patient notes resolution of diarrhea with Solu- Medrol. Objective: Vital Signs Temp Pulse Resp BP Pulse Ox 36.8 C 90 16 126/70 H 95 04/18/18 16:00 04/18/18 16:00 04/18/18 16:00 04/18/18 16:00 04/18/18 16:00 Microbiology 04/16/18 12:48 Gram Stain - Final Synovial Fluid - Aspirate 04/17/18 09:50 Mycobacterial Smear (SIRIA) - Final Ankle - Other 04/17/18 09:50 Gram Stain - Final Ankle - Aspirate Laboratory Results 04/18/18 04:12 04/18/18 04:12 04/17/18 04/18/18 04/19/18 05:59 05:59 05:59 Intake Total 1000 500 Balance 1000 500 ESR 101 MM/HR (0-20) H 04/16/18 11:40 C-Reactive Protein 152.5 mg/L (<10.0) H 04/16/18 11:40 Blood cultures no growth to date Wound cultures no growth to date AFB smear from wound drainage negative Synovial cultures no growth Laboratory Tests 04/16/18 04/16/18 04/16/18 11:40 11:40 17:45 Rheum Factor Semi-Quant < 8.6 ILENE Screen 1.49 H ILENE Titer <1:40 Proteinase 3 (PR3) < 0.2 Myeloperoxidase Ab <0.2 - Physical Exam General Appearance: alert, no apparent distress EENT: other (No conjunctivitis) Respiratory: lungs clear, No respiratory distress Cardiac/Chest: regular rate, rhythm Extremities: inflammation (Left ankle with significant decrease in inflammatory change; continues to have "ropy"texture underlying skin changes with mild residual tenderness; right ankle remains exquisitely tender with denuded skin but no residual seropurulent drainage; erythema decreased) Abdomen: non-tender, No distended - Time Spent With Patient Time Spent with Patient: greater than 25 minutes Time Spent with Patient: Greater than 25 minutes spent on this patients care, greater than 50% of time spent counseling, educating, and coordinating care regarding the above mentioned plan. ICD10 Worksheet Patient Problems: Problems Problem Status Onset Ankle swelling Acute Ulcerative colitis Acute
[2018-04-19 07:41] VITALS: BP 117/79
[2018-04-19] MEDS: methylPREDNISolone 4 MG TAB PO SCH (08:09)
[2018-04-19] MEDS: NORETHINDRONE E ESTRADIOL IRON PO SCH (08:10)
[2018-04-19] MEDS: MESALAMINE 4.8 GM PO SCH (08:10)
--- NOTE | 2018-04-19 11:41 | PDDCSUM ---
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/sterile abscess formation -ID consulted who initially changed abx to Rocephin then were discontinued -Ortho has aspirated the fluid collections, cultures remain NGTD -Rheumatology consulted who believe this is 2/2 to UC, started patient on Methylprednisilone 40 mg qd with plan to taper by 8 mg every 3 days -Autoimmune lab work in process -Denuded bulla on right medial malleolar region will require ongoing wound care , patient to followup in wound care clinic #ulcerative colitis - Has been controlled on Mesalamine in the past - Tx with steroids as above, GI consulted who will f/ as outpatient for colonoscopy and further management of UC, possible addition of biologic agent #Anemia with Microcytosis -iron panel indicated Fe Deficiency - Continue to monitor CBC as outpatient - GI followup evaluation of UC activity Time spent on discharge was >35 minutes with >50% of time spent on patient education and counseling
--- NOTE | 2018-04-19 12:22 | ASMTLACE ---
RAPHAEL Length of stay for Answers: 2 days current admission Acuity / Level of Answers: Yes Care: Did the patient have an inpatient admission? Comorbidities - select Answers: Other Notes: ulcerative colitis, josr at all that apply ankle swelling # of Emergency department Answers: 1-2 visits in the last 6 months Score: 7 Date Signed: 04/19/2018 11:46 AM Electronically Signed By:Jimena Pittman RN
--- NOTE | 2018-04-19 12:23 | ASMTCMCOM ---
CM Note CM Note Notes: Pt will dc home today w/support of boyfriend. She will f/u at wound clinic for her ankle, CM available for any changes. DC Plan: Independent Date Signed: 04/19/2018 11:48 AM Electronically Signed By:Jimena Pittman RN
--- NOTE | 2018-04-19 13:10 | SOAPPROG ---
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 No UC symptoms at this time. Microcytic colitis. Plan: Patient to be discharged today on Medrol. D/C on Lialda 4.8 grams po daily. Also recommend Ferrous gluconate 325 mg po daily. Follow up GI as outpatient. Please call with further questions 04/19/18 13:02 Subjective: CC: Panniculitis No GI symptoms or diarrhea. Panniculitis responding to Medrol. Objective: Vital Signs Temp Pulse Resp BP Pulse Ox 36.7 C 86 16 117/79 95 04/19/18 07:39 04/19/18 07:39 04/19/18 07:39 04/19/18 07:39 04/19/18 07:39 Microbiology 04/16/18 12:48 Gram Stain - Final Synovial Fluid - Aspirate 04/16/18 12:35 - Final Unspecified 04/17/18 09:50 Gram Stain - Final Ankle - Aspirate 04/17/18 09:50 Mycobacterial Smear (SIRIA) - Final Ankle - Other Laboratory Results 04/18/18 04:12 04/18/18 04:12 04/18/18 04/19/18 04/20/18 05:59 05:59 05:59 Intake Total 500 1500 Balance 500 1500 Generic Name Dose Route Start Last Admin Trade Name Freq PRN Reason Stop Dose Admin Acetaminophen 650 mg 04/16/18 13:37 Tylenol PO 10/13/18 13:36 Q4HRS PRN Pain, Mild/Fever, Can Take PO Hydrocodone Bitart/Acetaminophen 1 - 2 tab 04/16/18 19:32 04/18/18 08:06 [place] 5/325 PO 04/26/18 19:31 1 tab Q4 PRN Administration Pain, Moderate Able to Take PO Hydromorphone HCl 0.5 - 1 mg 04/16/18 12:20 04/16/18 12:41 Dilaudid IVP 04/26/18 12:19 0.5 mg Q3HRS PRN Administration Pain, Severe Unable to Take PO Methylprednisolone 40 mg 04/18/18 09:00 04/19/18 08:09 Medrol PO 04/20/18 09:01 40 mg DAILY MOLLY Administration Methylprednisolone 32 mg 04/21/18 09:00 Medrol PO 04/23/18 09:01 DAILY MOLLY Miscellaneous Medication 4.8 gm 04/17/18 09:00 04/19/18 08:10 Mesalamine [Lialda] PO 10/14/18 08:59 4.8 gm DAILY MOLLY Administration Miscellaneous Medication 1 each 04/16/18 09:00 04/19/18 08:10 Norethindrone-E.Estradiol-Iron [[place] Fe 1-20 Tablet] PO 10/13/18 08:59 1 each DAILY MOLLY Administration Ondansetron HCl 4 mg 04/16/18 13:37 Zofran IVP 10/13/18 13:36 Q4HRS PRN Nausea/Vomiting, Can't Take PO Ondansetron HCl 4 mg 04/16/18 13:37 Zofran Odt PO 10/13/18 13:36 Q4HRS PRN Nausea/Vomiting, Use 1st Discontinued Medications Generic Name Dose Route Start Last Admin Trade Name Freq PRN Reason Stop Dose Admin Gadobutrol Confirm 04/16/18 13:31 Gadavist 1 Mmol/Ml Administered 04/16/18 13:32 Dose 10 ml IVP .STK-MED ONE Hydromorphone HCl Confirm 04/16/18 12:35 Dilaudid Administered 04/16/18 12:36 Dose 2 mg .ROUTE .STK-MED ONE Ceftriaxone Sodium 2 gm/ 50 mls @ 100 mls/hr 04/17/18 09:00 04/17/18 08:28 Sodium Chloride IV 05/17/18 08:59 50 mls DAILY MOLLY Administration Protocol Potassium Chloride/Sodium Chloride 1,000 mls @ 125 mls/hr 04/16/18 13:45 15:10 Ns W/ 20 Kcl/L IV 04/16/18 21:44 1,000 mls CONT MOLLY Administration Physical Exam - Physical Exam General Appearance: alert, no apparent distress Respiratory: lungs clear, normal breath sounds Cardiac/Chest: regular rate, rhythm Abdomen: normal bowel sounds, non-tender, soft Neuro/Psych: no motor/sensory deficits, alert, normal mood/affect, oriented x 3 ICD10 Worksheet Patient Problems: Problems Problem Status Onset Ankle swelling Acute Ulcerative colitis Acute
--- NOTE | 2018-04-19 13:33 | SOAPPROG ---
CRISTOFERAP Progress Note Assessment/Plan: Assessment/Plan: 1. UC and panniculitis-- ankle soft tissue swelling/skin nodules and diarrhea much improved even after 1 dose of medrol 40mg. Taper pred as below-- 40mg qam x 3 days (1 more day at home), 32mg x 3 days, 24mg x 3 days, 16mg x 3 days, 8 mg x 3 days then stop. 2. 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 Dr. Barrios started iron. Follow up with GI as outpt. 04/19/18 13:28 Subjective: Saw the pt yesterday evening-- doing well, L ankle almost pain free and R is better. Diarrhea resolved. Tolerating medrol well without any side effects. Objective: Vital Signs Temp Pulse Resp BP Pulse Ox 36.7 C 86 16 117/79 95 04/19/18 07:39 04/19/18 07:39 04/19/18 07:39 04/19/18 07:39 04/19/18 07:39 Microbiology 04/17/18 09:50 Gram Stain - Final Ankle - Aspirate 04/16/18 12:48 Gram Stain - Final Synovial Fluid - Aspirate 04/16/18 12:35 - Final Unspecified 04/17/18 09:50 Mycobacterial Smear (SIRIA) - Final Ankle - Other Laboratory Results 04/18/18 04:12 04/18/18 04:12 04/18/18 04/19/18 04/20/18 05:59 05:59 05:59 Intake Total 500 1500 Balance 500 1500 ICD10 Worksheet Patient Problems: Problems Problem Status Onset Ankle swelling Acute Ulcerative colitis Acute
[2018-04-20] MEDS ORDERED: FERROUS SULFATE 325 MG TAB PO SCH (09:00)
[2018-04-21] MEDS ORDERED: methylPREDNISolone 4 MG TAB PO SCH (09:00)
== END 2018-04-19 16:18 | disposition home or self-care (01) | DRG 386 ==
LOC: F3E 11:05
PROVIDERS: ADMIT Family Medicine; ATTEND Family Medicine
PROC: 0S9G3ZX Drainage of Left Ankle Joint, Percutaneous Approach, Diagnostic (ICD-10-PCS; principal; 2018-04-16)
DX: K51.918 Ulcerative colitis, unspecified with other complication (principal); M02.871 Other reactive arthropathies, right ankle and foot; M02.8 Other reactive arthropathies; L03.115 Cellulitis of right lower limb; L03.116 Cellulitis of left lower limb; L02.415 Cutaneous abscess of right lower limb; L02.416 Cutaneous abscess of left lower limb; D50.9 Iron deficiency anemia, unspecified; M79.3 Panniculitis, unspecified
CPT/HCPCS: 80307; 83516-90; 83520-90; 86225-90; 86255-90; 86704-90; 86812-90; 97161-GP; A9585; G0472; G0480; J0696; J1170